=== PATIENT | female | born 1960 | race African-American/Black ===

== ENCOUNTER 2016-11-14 05:56 | Emergency (ER) | payer OTHER ==
[~2016-11-14] VITALS: Ht 165.1 cm; Wt 77.1 kg
[2016-11-14 05:57] VITALS: BP 153/93
[2016-11-14] MEDS ORDERED: COREG25 MG PO (06:03)
[2016-11-14] MEDS ORDERED: HYDROCHLOROTHIA25 M2 PO (06:03)
[2016-11-14] MEDS ORDERED: PROMETHAZINE-C120 ML PO (06:50)
== END 2016-11-14 06:52 | disposition home or self-care (01) ==
LOC: ER 05:56
DX: J20.8 Acute bronchitis due to other specified organisms (principal); I10 Essential (primary) hypertension; Z90.710 Acquired absence of both cervix and uterus; Z85.3 Personal history of malignant neoplasm of breast; Z88.8 Allergy status to other drugs, medicaments and biological substances